=== PATIENT | female | born 1965 | race Caucasian/White ===

== ENCOUNTER → 2022-08-28 | Outpatient (CLI) | payer OTHER ==
--- NOTE | 2022-09-01 16:44 | PE ---
EXAMINATION TYPE: PET CT fusion skull to thigh DATE OF EXAM: 08/28/2022 CLINICAL INDICATION:Female, 57 years old with history of SPN R91.1; TECHNIQUE: Following the intravenous administration of 12.0 mCi of F-18 FDG, whole body images are performed from the skull base to the midthigh. Images are reviewed on the computer in the coronal, a xial, and sagittal planes. Reconstructed rotating images are created on independent workstation and reviewed on the computer. A non-contrast CT is performed in conjunction with the PET scan. Glucose level 60 mg/dL COMPARISON: CT 08/10/2022 CT neck, PET/CT None, FINDINGS: Mediastinal SUV mean is 1.3. Hepatic parenchyma SUV mean is 1.5. SKULL BASE AND NECK: Left neck mass measuring 2.3 x 2.2 centers max SUV 2.47 m. Left superficial clavicular lymph node measuring 13 mm in short axis max SUV 1.5. CHEST, MEDIASTINUM, AND HILAR REGION: No suspicious FDG activity. Scattered pulmonary nodules are seen throughout the lungs. Examples include: Right upper lobe 10 mm Max SUV 1.0. Left upper lobe 8 mm Max SUV 0.8. Right lower lobe 8 mm Max SUV 0.8. Left lower lobe 7 mm Max SUV 0.7. ABDOMEN AND PELVIS: No suspicious FDG activity. OSSEOUS STRUCTURES: No suspicious FDG activity. OTHER CT: Right thyroid nodule measuring 15 mm. The heart is within normal limits for size. Mild nitza nary artery atherosclerosis. The gallbladder surgically absent. Left renal cyst. Right renal angiomyo lipoma measuring 2.7 cm. Scattered clonic diverticula. IMPRESSION: 1. Left neck lymph mass and supraclavicular lymph node with mild FDG activity. If not already comple toy ultrasound imaging with tissue sampling would be of benefit. 2. Scattered nodules of the lungs measuring up to 10 mm which do not demonstrate increased FDG activ ity above background levels this could be partially due to volume averaging in the sensitivity of PET . Etiology is unclear, could represent atheromatous disease. No abnormal FDG activity within lymph no rena within the chest. 3. Right thyroid nodule, further evaluation with dedicated thyroid ultrasound with the left neck mas s.
== END | disposition home or self-care (01) ==
LOC: RADPETMAIN 15:19
PROVIDERS: ATTEND Nurse Practitioner Family
DX: I89.8 Other specified noninfective disorders of lymphatic vessels and lymph nodes (principal); E04.1 Nontoxic single thyroid nodule; R91.8 Other nonspecific abnormal finding of lung field
CPT/HCPCS: 78815; A9552

== ENCOUNTER 2022-10-14 09:22 | Day surgery (SDC) | payer OTHER ==
[2022-10-14 09:47] VITALS: RESP 18; TEMP 98.2
[2022-10-14 10:14] VITALS: BP 134/80; PULSE 76
--- NOTE | 2022-10-14 13:06 | US ---
Ultrasound-guided lymph node biopsy Date: 10/14/2022 History: Left neck mass, suspect enlarged lymph node Comparison: PET/CT 08/28/2022 The patient was brought to the US room after coagulation profile was checked and deemed appropriate. The risks and benefits of the procedure were explained to the patient, and the patient's questions we re answered. Informed consent was obtained. Limited ultrasound of the left neck was performed demonstrating a 4.4 x 2.6 x 3.9 cm heterogeneous ma ss of mixed echogenicity with numerous scattered internal calcifications. The mass appears to be sepa rate from the thyroid and is posterior to the sternocleidomastoid muscle. A critical pause was performed. Sterile field was prepared, and lidocaine was used for local anesthes ia. Under direct ultrasound guidance, six 18-gauge core specimens of the mass were obtained and sent to pathology in formalin and saline soaked Telfa. The patient tolerated the procedure well with no apparent complications. A postprocedural scan throug h the region of interest demonstrated no acute complications. After the procedure, the patient was observed for a short period of time, again with no complications . Impression: Successful ultrasound-guided biopsy of a left neck mass.
== END 2022-10-14 10:45 | disposition home or self-care (01) ==
LOC: RADPROMAIN 09:22
PROVIDERS: ATTEND Family Medicine
DX: R59.9 Enlarged lymph nodes, unspecified (principal)
CPT/HCPCS: 38505; 76942; 88305; 88341; 88342

== ENCOUNTER → 2023-02-25 | Outpatient (CLI) | payer OTHER ==
[2023-02-26 10:19] LABS: Calcium 9.5 mg/dL (8.7-10.3); Magnesium 1.3 mg/dL (1.5-2.4); Phosphorus 3.7 mg/dL (2.4-5.1)
[2023-02-26 10:20] LABS: T4, Free (Free Thyroxine) <0.100 ng/dL (0.800-1.800)
== END | disposition home or self-care (01) ==
LOC: LABWHC1 15:36
PROVIDERS: ATTEND Internal Medicine
DX: C73 Malignant neoplasm of thyroid gland (principal)
CPT/HCPCS: 36415; 82310; 82570; 83735; 83789; 84100; 84432; 84439; 84443; 86800

== ENCOUNTER → 2023-03-03 | Outpatient (CLI) | payer OTHER ==
--- NOTE | 2023-03-04 16:22 | NM ---
EXAMINATION TYPE: NM thyroid uptake only single DATE OF EXAM: 03/04/2023 COMPARISON: NONE CLINICAL INDICATION: Female, 57 years old with history of C73; patient with history of thyroid cancer with prior total thyroidectomy. Exam being done for ablation dose calculation. Following administration of 98 uCi I-123 capsule, uptake in the neck is measured. FINDINGS AND IMPRESSION: The 24-hour radioactive iodine uptake is 1.0%.
== END | disposition home or self-care (01) ==
LOC: RADNMMAIN 09:42
PROVIDERS: ATTEND Internal Medicine
DX: C73 Malignant neoplasm of thyroid gland (principal)
CPT/HCPCS: 78012; A9516

== ENCOUNTER → 2023-03-09 | Outpatient (CLI) | payer OTHER ==
--- NOTE | 2023-03-09 17:01 | NM ---
EXAMINATION TYPE: NM Thyroid Iodine Therapy Oral DATE OF EXAM: 03/09/2023 COMPARISON: Uptake 03/03/2023 HISTORY: 57-year-old female C73, multifocal papillary thyroid cancer with multiple large left-sided c ervical shaye metastases. Status post thyroidectomy and lymph node dissection. TECHNIQUE: The patient is on thyroid hormone withdrawal and low iodine diet. Dose was prescribed (written directive) by an Authorized User in conjunction with treatment request a nd consultation with Dr. Hawkins. Risks, benefits, and potential complications of radioactive I-131 therapy were discussed in detail wi th the patient by myself and the nuclear auxiliary operator. Verbal and written informed consent wer e obtained. Written instructions were given for radiation safety precautions to be observed for 5 day s outpatient. The patient specific exposure calculations were done by RSO to ensure estimated max dose to any indiv idual exposed to the patient was less than 5 mSv. The patient was specifically advised to avoid close contact with children, women, and other members of public. Dose was verified in dose caliber and patient was given oral I-131 pill under the supervision of the nuclear auxiliary operator. There were no immediate complications. IMPRESSION: Outpatient 146.3 mCi I-131 oral therapy capsule for thyroid remnant ablation. Patient will return for her posttreatment whole body scan on days 2 and 3.
== END | disposition home or self-care (01) ==
LOC: RADNMMAIN 12:56
PROVIDERS: ATTEND Internal Medicine
DX: C73 Malignant neoplasm of thyroid gland (principal); C77.0 Secondary and unspecified malignant neoplasm of lymph nodes of head, face and neck
CPT/HCPCS: 79005; A9517

== ENCOUNTER → 2023-04-09 | Outpatient (CLI) | payer OTHER ==
--- NOTE | 2023-04-09 15:14 | CT ---
EXAMINATION TYPE: CT chest w con DATE OF EXAM: 04/09/2023 COMPARISON: Correlation nuclear medicine I-131 whole body scan 03/11/2023. Head CT 08/28/2022. HISTORY: 57-year-old female Thyroid Cancer TECHNIQUE: Contiguous axial scanning of the chest after the administration of 100 ml mL of Isovue 300 . Coronal/sagittal reconstructions performed. CT DLP: 577.20mGycm. Automatic exposure control utilized for a dose reduction. FINDINGS: The heart is normal size without pericardial effusion. Aorta is normal-caliber bovine configuration to the aortic arch. No thoracic lymphadenopathy by CT size criteria. There are innumerable pulmonary nodules present most of which are 5 mm smaller but some measuring up to 1 cm. Most of these nodules appear to be smaller by a millimeter or 2 from the patient's exam. The area of uptake posterior left midlung likely corresponds to the 2 adjacent nodules with aggregate dimension measuring 1.2 cm in the left upper lobe, coronal image 74. Prominent ingested debris distending the stomach. Mild stool burden in the visualized upper abdomen. Exophytic 2.6 cm cyst medial upper left kidney. Cholecystectomy clips. Bones: There is dextroconvex scoliotic curvature upper third thoracic spine. [facility] lower thoracic spin e. Breathing motion artifact. IMPRESSION: Redemonstrated numerous bilateral pulmonary nodules mostly 5 mm and smaller with some measuring up to 1 cm. Most of these nodules are smaller by a millimeter or 2 from the prior 08/28/2022 exam. This co uld reflect partial/evolving posttreatment effect. Focal activity posterior left midlung on the patie nt's nuclear medicine scan seems to correspond to 2 adjacent nodules with aggregate dimension of 1.2 cm in the left upper lobe.
== END | disposition home or self-care (01) ==
LOC: RADCTMAIN 11:09
PROVIDERS: ATTEND Internal Medicine
DX: C73 Malignant neoplasm of thyroid gland (principal); R91.8 Other nonspecific abnormal finding of lung field
CPT/HCPCS: 71260; Q9967